=== PATIENT | female | born 1940 | race Caucasian/White ===

== ENCOUNTER 2018-01-20 10:01 | Inpatient (IN) | payer MEDICARE ==
[2018-01-20] MEDS ORDERED: SODIUM CHLORIDE 0.9% 500 ML IV STA (10:15)
[2018-01-20] MEDS ORDERED: IPRATROPIUM-ALBUTEROL 3 ML NEB INHALATION STA (10:15)
--- NOTE | 2018-01-20 10:29 | ED ---
General Adult HPI - General Stated complaint: Weakness Time Seen by Provider: 01/20/18 10:04 Source: patient, RN notes reviewed, old records reviewed Mode of arrival: ambulatory Limitations: no limitations - History of Present Illness Initial comments: 77-year-old female presents with generalized weakness. Patient was urged by family members to present. EMS brought the patient in with significant amount of effort. According to EMS she has had a mild cough which is productive for some time. Patient does admit to this symptom. She is unwilling to contribute significant information of the history. She will deny chest pain. Deny fever or chills. Denies abdominal pain. She has had some chronic right lower extremity swelling with multiple open sores. She does admit to daily tobacco use. - Related Data Home Medications Medication Instructions Recorded Confirmed Lisinopril [Zestril] 10 mg PO DAILY 01/20/18 01/20/18 Triamterene-Hctz 37.5-25Mg 1 cap PO DAILY 01/20/18 01/20/18 [Dyazide 37.5-25 Capsule] Allergies Allergy/AdvReac Type Severity Reaction Status Date / Time No Known Allergies Allergy Unverified 01/20/18 10:34 Review of Systems ROS Statement: Those systems with pertinent positive or pertinent negative responses have been documented in the HPI. ROS Other: All systems not noted in ROS Statement are negative. Past Medical History Past Medical History: COPD History of Any Multi-Drug Resistant Organisms: None Reported Past Surgical History: No Surgical Hx Reported Past Psychological History: No Psychological Hx Reported Smoking Status: Current every day smoker Past Alcohol Use History: None Reported Past Drug Use History: None Reported General Exam Limitations: no limitations General appearance: alert Head exam: Present: atraumatic. Absent: normocephalic Eye exam: Present: normal appearance, PERRL ENT exam: Present: mucous membranes dry Neck exam: Present: normal inspection. Absent: tenderness, meningismus Respiratory exam: Present: respiratory distress (Mild tachypnea), rhonchi ( Bilateral rhonchi, may be transmitted upper airway), decreased breath sounds Cardiovascular Exam: Present: normal rhythm, tachycardia GI/Abdominal exam: Present: soft. Absent: distended, tenderness, guarding Extremities exam: Present: other (Left lower extremity, multiple sores with minimal surrounding erythema, right lower extremity is edematous, erythematous to the knee, there is multiple sores with purulent drainage. No palpable pulse secondary to edema, there is Doppler signal.) Neurological exam: Present: alert, oriented X3 Psychiatric exam: Present: normal affect, normal mood Skin exam: Present: warm, dry. Absent: cyanosis, diaphoretic Course Vital Signs 01/20/18 01/20/18 01/20/18 10:20 10:52 12:31 Temperature 96.9 F L Pulse Rate 108 H 101 H Pulse Rate [ 106 H Right Product Development Director] Respiratory 22 24 18 Rate Blood Pressure 119/54 115/48 O2 Sat by Pulse 91 L 92 L Oximetry 01/20/18 01/20/18 01/20/18 12:32 12:40 13:28 Temperature Pulse Rate 106 H 107 H 118 H Pulse Rate [ Right Product Development Director] Respiratory 18 Rate Blood Pressure 122/61 O2 Sat by Pulse 91 L Oximetry EKG Findings - EKG Comments: EKG Findings:: EKG: Sinus tachycardia, very poor baseline secondary tremor Rate of 111, RI interval 140 QRS is narrow, QRS duration 82, there is no visualized ST segment elevation although baseline is very poor. Patient is chest pain- free at the time of this EKG Medical Decision Making - Medical Decision Making 76 yo female presenting for evaluation of weakness. On initial evaluation patient appears to be in moderate dyspnea, she does report some URI symptoms including productive cough. Lungs are diminished with wheezing. She is a long- time smoker. She also has erythematous right lower extremity with multiple open ulcerations with purulent drainage. Ultrasound is obtained of this leg is negative for DVT, there is a 2.8 cm lymph node likely reactive secondary to infection. In addition to this infectious source patient does have chest x-ray revealing right middle lobe infiltrate consistent with a respiratory complaint. And she has a urinalysis which is suggestive of urinary tract infection with 77 red cells and greater than 182 white cells. Blood culture and urine culture are pending. Patient has significant laboratory abnormalities including leukocytosis with white blood cell count 35.6, hemoglobin stable, potassium is elevated 6.2 in the setting of renal failure with a creatinine of 2.27, no baseline for comparison. Patient does have a lactic acidosis of 2.2. She is given IV hydration, started on antibiotics covering both urinary tract infection , community acquired pneumonia, and cellulitis of the right lower extremity. Case discussed with the admitting physician, patient will also receive evaluation by infectious disease. - Lab Data Result diagrams: 01/20/18 10:46 01/20/18 10:46 Lab Results 01/20/18 01/20/18 01/20/18 Range/Units 10:46 10:46 10:46 WBC 35.6 H (3.8-10.6) k/uL RBC 4.19 (3.80-5.40) m/uL Hgb 11.0 L (11.4-16.0) gm/dL Hct 35.1 (34.0-46.0) % MCV 83.7 (80.0-100.0) fL MCH 26.3 (25.0-35.0) pg MCHC 31.4 (31.0-37.0) g/dL RDW 14.6 (11.5-15.5) % Plt Count 567 H (150-450) k/uL Neutrophils % (Manual) 75 % Band Neutrophils % 8 % Lymphocytes % (Manual) 12 % Monocytes % (Manual) 5 % Neutrophils # (Manual) 29.50 H (1.3-7.7) k/uL Lymphocytes # (Manual) 4.27 (1.0-4.8) k/uL Monocytes # (Manual) 1.78 H (0-1.0) k/uL Nucleated RBCs 0 (0-0) /100 WBC Manual Slide Review Performed Toxic Vacuolation Present RBC Morphology Normal PT (9.0-12.0) sec INR (<1.2) APTT (22.0-30.0) sec Sodium 135 L (137-145) mmol/L Potassium 6.2 H* (3.5-5.1) mmol/L Chloride 99 (98-107) mmol/L Carbon Dioxide 20 L (22-30) mmol/L Anion Gap 16 mmol/L BUN 93 H (7-17) mg/dL Creatinine 2.27 H (0.52-1.04) mg/dL Est GFR (CKD-EPI)AfAm 23 (>60 ml/min/1.73 sqM) Est GFR (CKD-EPI)NonAf 20 (>60 ml/min/1.73 sqM) Glucose 75 (74-99) mg/dL Plasma Lactic Acid Garrett (0.7-2.0) mmol/L Calcium 9.1 (8.4-10.2) mg/dL Magnesium 2.9 H (1.6-2.3) mg/dL Total Bilirubin 0.7 (0.2-1.3) mg/dL AST 71 H (14-36) U/L ALT 31 (9-52) U/L Alkaline Phosphatase 169 H (38-126) U/L Total Creatine Kinase 657 H (30-135) U/L CK-MB (CK-2) 11.2 H (0.0-2.4) ng/mL CK-MB (CK-2) Rel Index 1.7 Troponin I 0.022 (0.000-0.034) ng/mL Total Protein 7.1 (6.3-8.2) g/dL Albumin 3.1 L (3.5-5.0) g/dL Urine Color Urine Appearance (Clear) Urine pH (5.0-8.0) Ur Specific Goodell (1.001-1.035) Urine Protein (Negative) Urine Glucose (UA) (Negative) Urine Ketones (Negative) Urine Blood (Negative) Urine Nitrite (Negative) Urine Bilirubin (Negative) Urine Urobilinogen (<2.0) mg/dL Ur Leukocyte Esterase (Negative) Urine RBC (0-5) /hpf Urine WBC (0-5) /hpf Urine WBC Clumps (None) /hpf Urine Bacteria (None) /hpf Hyaline Casts (0-2) /lpf 01/20/18 01/20/18 01/20/18 Range/Units 10:46 10:46 12:15 WBC (3.8-10.6) k/uL RBC (3.80-5.40) m/uL Hgb (11.4-16.0) gm/dL Hct (34.0-46.0) % MCV (80.0-100.0) fL MCH (25.0-35.0) pg MCHC (31.0-37.0) g/dL RDW (11.5-15.5) % Plt Count (150-450) k/uL Neutrophils % (Manual) % Band Neutrophils % % Lymphocytes % (Manual) % Monocytes % (Manual) % Neutrophils # (Manual) (1.3-7.7) k/uL Lymphocytes # (Manual) (1.0-4.8) k/uL Monocytes # (Manual) (0-1.0) k/uL Nucleated RBCs (0-0) /100 WBC Manual Slide Review Toxic Vacuolation RBC Morphology PT 11.0 (9.0-12.0) sec INR 1.1 (<1.2) APTT 26.4 (22.0-30.0) sec Sodium (137-145) mmol/L Potassium (3.5-5.1) mmol/L Chloride (98-107) mmol/L Carbon Dioxide (22-30) mmol/L Anion Gap mmol/L BUN (7-17) mg/dL Creatinine (0.52-1.04) mg/dL Est GFR (CKD-EPI)AfAm (>60 ml/min/1.73 sqM) Est GFR (CKD-EPI)NonAf (>60 ml/min/1.73 sqM) Glucose (74-99) mg/dL Plasma Lactic Acid Garrett 2.2 H* (0.7-2.0) mmol/L Calcium (8.4-10.2) mg/dL Magnesium (1.6-2.3) mg/dL Total Bilirubin (0.2-1.3) mg/dL AST (14-36) U/L ALT (9-52) U/L Alkaline Phosphatase (38-126) U/L Total Creatine Kinase (30-135) U/L CK-MB (CK-2) (0.0-2.4) ng/mL CK-MB (CK-2) Rel Index Troponin I (0.000-0.034) ng/mL Total Protein (6.3-8.2) g/dL Albumin (3.5-5.0) g/dL Urine Color Red Urine Appearance Turbid H (Clear) Urine pH 5.5 (5.0-8.0) Ur Specific Goodell 1.018 (1.001-1.035) Urine Protein 2+ H (Negative) Urine Glucose (UA) Negative (Negative) Urine Ketones Negative (Negative) Urine Blood Large H (Negative) Urine Nitrite Negative (Negative) Urine Bilirubin Negative (Negative) Urine Urobilinogen 2.0 (<2.0) mg/dL Ur Leukocyte Esterase Large H (Negative) Urine RBC 77 H (0-5) /hpf Urine WBC >182 H (0-5) /hpf Urine WBC Clumps Many H (None) /hpf Urine Bacteria Many H (None) /hpf Hyaline Casts 56 H (0-2) /lpf Critical Care Time Critical Care Time: Yes Total Critical Care Time: 35 Disposition Clinical Impression: Hyperkalemia, Sepsis, UTI (urinary tract infection), Community acquired pneumonia Disposition: ADMITTED IP TO THIS HOSP Condition: Stable Is patient prescribed a controlled substance at d/c from ED?: No Referrals: Eleuterio Fontana MD [Primary Care Provider] - 1-2 days Decision to Admit Reason: Admit from EC Decision Date: 01/20/18 Decision Time: 13:45
[2018-01-20 11:08] LABS: HCT 35.1 % (34.0-46.0); MCH 26.3 pg (25.0-35.0); MCHC 31.4 g/dL (31.0-37.0); MCV 83.7 fL (80.0-100.0); Mean Platelet Volume 6.1; Platelet Count 567 k/uL (150-450); RBC 4.19 m/uL (3.80-5.40); RDW 14.6 % (11.5-15.5); WBC 35.6 k/uL (3.8-10.6)
[2018-01-20 11:22] LABS: INR 1.1 (<1.2); Partial Thromboplastin Time 26.4 sec (22.0-30.0)
[2018-01-20 11:27] LABS: Albumin 3.1 g/dL (3.5-5.0); Calcium 9.1 mg/dL (8.4-10.2); Magnesium 2.9 mg/dL (1.6-2.3); Total Bilirubin 0.7 mg/dL (0.2-1.3); Total Protein 7.1 g/dL (6.3-8.2)
[2018-01-20 11:39] LABS: Potassium 6.2 mmol/L (3.5-5.1)
[2018-01-20 11:48] LABS: Band Neutrophils % 8 %; Lymphocytes # (M) 4.27 k/uL (1.0-4.8); Monocytes # (M) 1.78 k/uL (0-1.0); Neutrophils % (M) 75 %; Nucleated Red Blood Cells 0 /100 WBC (0-0); Total Cells Counted 100
[2018-01-20] MEDS ORDERED: SODIUM CHLORIDE 0.9% 500 ML IV ONE (11:49)
[2018-01-20] MEDS ORDERED: SODIUM POLYSTYRENE SULFONATE 15 GM/60 ML BOTTLE PO ONE (11:49)
[2018-01-20] MEDS ORDERED: VANCOMYCIN IV PER PHARMACY 1 EACH MISC MISCELLANE PRN (11:49)
[2018-01-20 11:50] LABS: Creatine Kinase MB 11.2 ng/mL (0.0-2.4); Troponin I 0.022 ng/mL (0.000-0.034)
[2018-01-20] MEDS ORDERED: CALCIUM GLUCONATE 1,000 MG in SODIUM CHLORIDE 0.9% 100 ML IVPB ONE (11:50)
[2018-01-20 11:53] LABS: Toxic Vacuolation Present
[2018-01-20] MEDS ORDERED: VANCOMYCIN 1,000 MG in SODIUM CHLORIDE 0.9% 250 ML IVPB STA (11:54)
--- NOTE | 2018-01-20 12:38 | XR ---
EXAMINATION TYPE: XR chest 2V DATE OF EXAM: 01/20/2018 COMPARISON: NONE HISTORY: Shortness of breath TECHNIQUE: Frontal and lateral views of the chest are obtained. FINDINGS: Scattered senescent parenchymal changes noted. Hyperinflation compatible with COPD. Right middle lobe infiltrate or atelectasis. Underlying fibrosis noted. Fixed hiatal hernia. Heart size is stable. Mediastinal structures are stable and grossly unremarkable. No evidence for hilar prominence. Degenerative changes dorsal spine. IMPRESSION: 1. Right middle lobe infiltrate or atelectasis. Underlying fibrosis noted.
[2018-01-20 12:42] LABS: Appearance,Urine Turbid (Clear); Bacteria,Urine Many /hpf; Bilirubin,Urine Negative (Negative); Blood,Urine Large (Negative); Color,Urine Red; Glucose,Urine (UA) Negative (Negative); Hyaline Casts,Urine 56 /lpf (0-2); Ketones,Urine Negative (Negative); Leukocyte Esterase,Urine Large (Negative); Nitrite,Urine Negative (Negative); PH, Urine 5.5 (5.0-8.0); Protein,Urine 2+ (Negative); RBC,Urine 77 /hpf (0-5); Specific Gravity,Urine 1.018 (1.001-1.035); WBC,Urine >182 /hpf (0-5)
--- NOTE | 2018-01-20 13:53 | US ---
EXAMINATION TYPE: US venous doppler duplex LE RT DATE OF EXAM: 01/20/2018 1:37 PM COMPARISON: NONE CLINICAL HISTORY: Pain. Right leg pain and swelling SIDE PERFORMED: Right TECHNIQUE: The lower extremity deep venous system is examined utilizing real time linear array sonog jalen with graded compression, doppler sonography and color-flow sonography. VESSELS IMAGED: External Iliac Vein (EIV) Common Femoral Vein Deep Femoral Vein Greater Saphenous Vein * Femoral Vein Popliteal Vein Small Saphenous Vein * Proximal Calf Veins (* superficial vessels) Right Leg: Appears negative for DVT 2.8cm lymph node seen in right groin IMPRESSION: No evidence for DVT at this time.
[2018-01-20] MEDS ORDERED: AZITHROMYCIN 500 MG in SODIUM CHLORIDE 0.9% 250 ML IVPB STA (14:04)
[2018-01-20] MEDS ORDERED: NALOXONE 0.4 MG/ML 1 ML VIAL IV PRN (14:14)
[2018-01-20] MEDS ORDERED: ACETAMINOPHEN TAB 325 MG TAB PO PRN (14:14)
[2018-01-20] MEDS: SODIUM CHLORIDE 0.9% 1,000 ML IV SCH (14:35)
[2018-01-20] MEDS: LISINOPRIL 10 MG TAB PO SCH (17:58)
[2018-01-20] MEDS ORDERED: traZODone HCL 50 MG TAB PO PRN (18:04)
[2018-01-20] MEDS: METOPROLOL TARTRATE 50 MG TAB PO SCH (18:10)
[2018-01-20 22:09] LABS: Glucose,Whole Blood 77 mg/dL (75-99)
[2018-01-20 22:27] LABS: Albumin 2.3 g/dL (3.5-5.0); Calcium 8.3 mg/dL (8.4-10.2); Potassium 4.1 mmol/L (3.5-5.1); Total Bilirubin 0.2 mg/dL (0.2-1.3); Total Protein 5.7 g/dL (6.3-8.2)
[2018-01-20 23:03] LABS: INR 1.2 (<1.2); Partial Thromboplastin Time 25.9 sec (22.0-30.0); Prothrombin Time 11.9 sec (9.0-12.0)
[2018-01-20 23:03] LABS: Glucose,Whole Blood 64 mg/dL (75-99)
[2018-01-20 23:12] LABS: ABG Base Excess -7.7 mmol/L; ABG HCO3 18 mmol/L (21-25); ABG Oxygen Saturation 96.4 % (94-97); ABG PCO2 32 mmHg (35-45); ABG PH 7.36 (7.35-7.45); ABG PO2 108 mmHg (83-108); ABG TCO2 19 mmol/L (19-24)
[2018-01-20 23:22] LABS: Glucose,Whole Blood 70 mg/dL (75-99)
[2018-01-20] MEDS: NOREPINEPHRINE 4 MG in SODIUM CHLORIDE 0.9% 250 ML IV SCH (23:47)
[2018-01-20 23:54] LABS: Calcium 7.9 mg/dL (8.4-10.2); Magnesium 2.6 mg/dL (1.6-2.3); Phosphorus 6.9 mg/dL (2.5-4.5); Potassium 4.4 mmol/L (3.5-5.1)
[2018-01-21] LABS: Basophils # (A) 0.2 k/uL (0-0.2); Basophils % (A) 1 %; Eosinophils # (A) 0.2 k/uL (0-0.7); Eosinophils % (A) 1 %; HCT 30.1 % (34.0-46.0); Hypochromasia Slight; Lymphocytes # (A) 2.2 k/uL (1.0-4.8); Lymphocytes % (A) 8 %; MCH 26.5 pg (25.0-35.0); MCHC 30.5 g/dL (31.0-37.0); MCV 86.9 fL (80.0-100.0); Mean Platelet Volume 6.2; Monocytes # (A) 0.4 k/uL (0-1.0); Monocytes % (A) 2 %; Neutrophils # (A) 23.1 k/uL (1.3-7.7); Neutrophils % (A) 88 %; Platelet Count 435 k/uL (150-450); RBC 3.46 m/uL (3.80-5.40); RDW 14.8 % (11.5-15.5); WBC 26.3 k/uL (3.8-10.6)
[2018-01-21 00:08] LABS: HGB 9.2 gm/dL (11.4-16.0)
[2018-01-21] MEDS ORDERED: HEPARIN SODIUM,PORCINE 5,000 UNIT/ML 1 ML VIAL IV ONE (01:55)
[2018-01-21] MEDS ORDERED: HEPARIN SODIUM,PORCINE 5,000 UNIT/ML 1 ML VIAL IV PRN (01:55)
[2018-01-21] MEDS ORDERED: HEPARIN SOD,PORK IN 0.45% NACL 25,000 UNIT in 0.45% NACL 1 500ML.BAG IV SCH (02:00)
[2018-01-21] MEDS: METOPROLOL TARTRATE 50 MG TAB PO SCH ×2 (02:22→08:27)
[2018-01-21 03:14] LABS: Glucose,Whole Blood 68 mg/dL (75-99)
[2018-01-21 05:35] LABS: Albumin 2.3 g/dL (3.5-5.0); Calcium 7.7 mg/dL (8.4-10.2); Magnesium 2.5 mg/dL (1.6-2.3); Potassium 3.7 mmol/L (3.5-5.1); Total Bilirubin 0.3 mg/dL (0.2-1.3); Total Protein 5.6 g/dL (6.3-8.2)
[2018-01-21 05:41] LABS: HCT 31.5 % (34.0-46.0); HGB 9.9 gm/dL (11.4-16.0); Hypochromasia Slight; MCH 26.9 pg (25.0-35.0); MCHC 31.3 g/dL (31.0-37.0); Mean Platelet Volume 6.4; Platelet Count 494 k/uL (150-450); RBC 3.67 m/uL (3.80-5.40); RDW 14.8 % (11.5-15.5)
[2018-01-21] MEDS ORDERED: ACETAMINOPHEN IV (For NPO) 1,000 MG in EMPTY BAG 1 BAG IVPB PRN (05:52)
[2018-01-21] MEDS: SODIUM CHLORIDE 0.9% 1,000 ML IV SCH (05:58)
[2018-01-21] MEDS ORDERED: ACETAMINOPHEN TAB 325 MG TAB PO PRN (06:02)
[2018-01-21] MEDS ORDERED: Potassium Replacement Protocol 1 EACH MISC MISCELLANE PRN (06:22)
[2018-01-21 06:24] LABS: Band Neutrophils % 7 %; Lymphocytes # (M) 2.61 k/uL (1.0-4.8); Monocytes # (M) 1.16 k/uL (0-1.0); Neutrophils % (M) 81 %; Nucleated Red Blood Cells 0 /100 WBC (0-0); Total Cells Counted 200
[2018-01-21] MEDS ORDERED: DILTIAZEM 50 MG in SODIUM CHLORIDE 0.9% 40 ML IV STA (06:44)
[2018-01-21] MEDS ORDERED: DILTIAZEM DRIP BOLUS FROM BAG 1 MG SOLN IV STA (06:44)
--- NOTE | 2018-01-21 06:58 | XR ---
EXAMINATION TYPE: XR chest 1V portable DATE OF EXAM: 01/21/2018 HISTORY: Rule out pneumonia. REFERENCE: Previous study dated 01/20/2018. FINDINGS: There is a worsening right basilar infiltrate. There is an associated right-sided effusion. Heart size is obscured. There is a background of interstitial fibrosis. IMPRESSION: WORSENING RIGHT BASILAR PNEUMONIA.
[2018-01-21] MEDS: LISINOPRIL 10 MG TAB PO SCH (08:27)
[2018-01-21 08:30] VITALS: TEMP 99.3
[2018-01-21 08:36] LABS: INR 1.2 (<1.2); Partial Thromboplastin Time 28.9 sec (22.0-30.0); Prothrombin Time 11.4 sec (9.0-12.0)
[2018-01-21 08:54] LABS: Glucose,Whole Blood 66 mg/dL (75-99)
[2018-01-21] MEDS ORDERED: DEXTROSE 50%-WATER 50 ML SYRINGE IVP ONE (08:54)
[2018-01-21 08:55] VITALS: BMI 15.0
[2018-01-21] MEDS ORDERED: AZITHROMYCIN 500 MG in SODIUM CHLORIDE 0.9% 250 ML IVPB SCH ×4 (09:00)
[2018-01-21] MEDS ORDERED: DEXTROSE 50%-WATER 50 ML SYRINGE IVP STA (09:02)
[2018-01-21] MEDS: NOREPINEPHRINE 4 MG in SODIUM CHLORIDE 0.9% 250 ML IV SCH (09:27)
[2018-01-21] MEDS: POTASSIUM CHLORIDE 10 MEQ in WATER FOR INJECTION 1 100ML.BAG IVPB SCH ×2 (09:28→10:39)
[2018-01-21 09:41] LABS: Glucose,Whole Blood 135 mg/dL (75-99)
[2018-01-21] MEDS ORDERED: VANCOMYCIN 750 MG in SODIUM CHLORIDE 0.9% 250 ML IVPB ONE (10:00)
[2018-01-21 10:23] VITALS: BP 91/44; PULSE 111; RESP 24
--- NOTE | 2018-01-21 10:54 | P.CNPUL ---
History of Present Illness Consult date: 01/21/18 Reason for consult: dyspnea, hypoxemia, pneumonia, abnormal CXR/CT, other Chief complaint: Urosepsis, cellulitis, pneumonia, impending respiratory failure. History of present illness: Pulmonary consult dated 01/21/2018 77-year-old female who presented to the emergency department on January 20 with generalized weakness. She apparently was brought in by EMS. She apparently was complaining of a productive cough. She was not able to give much history. She apparently denied any chest pain fever or chills. Denied any abdominal discomfort. She does have some chronic right lower extremity swelling and edema. She was checked for DVT that was negative. Chest x-ray reported to show either right middle lobe/right lower lobe pneumonia. She apparently developed worsening respiratory distress yesterday on the floor and was a rapid response team. My ICU nurse, Dorene, went to go see her and called me. The patient was in significant distress and was brought to the treatment room in the ICU. Currently, the patient's on BiPAP at 10 and 5 and 50% oxygen. The patient's on heparin via weightbase protocol norepinephrine at 10 mics per minute Cardizem drip at 5 mg an hour and a saline IV at 20 mL an hour. Chest x-ray showed evidence of heart failure and possible pneumonia in the right middle lobe/right lower lobe. The patient is apparently DO NOT INTUBATE. Her son Ke is here for waiting for her in the waiting room. Quite honestly, the patient looks extremely. I don't believe that she is to make it through this critical illness. Her breathing pattern is rather irregular. She has significant lower extremity edema and ulcerations of the feet and legs. Chest x-ray, labs and medications are reviewed. Not much is known about this patient though she apparently has a history of COPD and hypertension. Review of Systems ROS unobtainable: due to mental status Past Medical History Past Medical History: COPD, Hypertension, Skin Disorder Additional Past Medical History / Comment(s): scoliosis, back pain, skin condition pt can't rememebr what it's called History of Any Multi-Drug Resistant Organisms: None Reported Past Surgical History: No Surgical Hx Reported Additional Past Surgical History / Comment(s): 1988 small benign growth removed from breast Past Anesthesia/Blood Transfusion Reactions: No Reported Reaction Smoking Status: Current every day smoker - Past Family History Father Family Medical History: CVA/TIA Additional Family Medical History / Comment(s): in his 70's Mother Family Medical History: Myocardial Infarction ([place]) Additional Family Medical History / Comment(s): in her mid 80's Medications and Allergies Home Medications Medication Instructions Recorded Confirmed Type Lisinopril [Zestril] 10 mg PO DAILY 01/20/18 01/20/18 History Triamterene-Hctz 37.5-25Mg 1 cap PO DAILY 01/20/18 01/20/18 History [Dyazide 37.5-25 Capsule] Allergies Allergy/AdvReac Type Severity Reaction Status Date / Time No Known Allergies Allergy Unverified 01/20/18 10:34 Physical Exam Osteopathic Statement: *. No significant issues noted on an osteopathic structural exam other than those noted in the History and Physical/Consult. Vitals: Vital Signs Temp Pulse Pulse Pulse Resp BP BP 01/21/18 10:00 111 H 24 91/44 01/21/18 09:30 130 H 29 H 78/38 01/21/18 09:00 128 H 26 H 104/53 01/21/18 08:30 136 H 34 H 83/52 01/21/18 08:00 99.3 F 120 H 30 H 116/54 01/21/18 07:30 141 H 34 H 129/83 01/21/18 07:00 136 H 28 H 135/66 01/21/18 06:45 148 H 35 H 137/64 01/21/18 06:30 154 H 19 134/61 01/21/18 06:15 132 H 31 H 126/50 01/21/18 06:00 144 H 32 H 119/59 01/21/18 05:45 143 H 26 H 77/54 01/21/18 05:42 01/21/18 05:30 149 H 29 H 114/65 01/21/18 05:15 132 H 34 H 110/56 01/21/18 05:00 124 H 30 H 136/56 01/21/18 04:45 133 H 24 115/67 01/21/18 04:30 119 H 20 114/56 01/21/18 04:15 121 H 26 H 122/54 01/21/18 04:00 99.1 F 134 H 26 H 122/61 01/21/18 03:45 120 H 29 H 110/59 01/21/18 03:30 122 H 28 H 109/53 01/21/18 03:15 115 H 26 H 107/43 01/21/18 03:00 130 H 27 H 124/63 01/21/18 02:45 114 H 29 H 119/61 01/21/18 02:30 128 H 28 H 95/49 01/21/18 02:15 130 H 28 H 109/46 01/21/18 02:00 128 H 32 H 113/53 01/21/18 01:45 110 H 23 102/52 01/21/18 01:30 128 H 33 H 100/55 01/21/18 01:15 116 H 26 H 01/21/18 01:00 127 H 28 H 97/64 01/21/18 00:45 116 H 28 H 127/73 01/21/18 00:30 112 H 30 H 111/50 01/21/18 00:15 97.9 F 136 H 24 105/62 01/21/18 00:10 106 H 22 95/60 01/21/18 00:00 122 H 23 104/77 01/20/18 23:50 121 H 21 109/55 01/20/18 23:40 123 H 28 H 92/48 01/20/18 23:30 122 H 51 H 79/46 01/20/18 23:20 126 H 36 H 81/53 01/20/18 23:10 111 H 32 H 92/46 01/20/18 23:00 97.9 F 111 H 26 H 92/46 18 22:30 01/20/18 20:00 98.1 F 125 H 22 110/59 01/20/18 16:00 97.1 F L 130 H 22 148/61 01/20/18 15:08 96.8 F L 118 H 18 122/61 01/20/18 14:51 96.8 F L 118 H 18 122/61 01/20/18 13:28 118 H 18 122/61 01/20/18 12:40 107 H 01/20/18 12:32 106 H 01/20/18 12:31 101 H 18 115/48 01/20/18 10:52 106 H 24 Pulse Ox 01/21/18 10:00 97 01/21/18 09:30 96 01/21/18 09:00 95 01/21/18 08:30 95 01/21/18 08:00 97 01/21/18 07:30 96 01/21/18 07:00 97 01/21/18 06:45 97 01/21/18 06:30 97 01/21/18 06:15 97 01/21/18 06:00 92 L 01/21/18 05:45 92 L 01/21/18 05:42 96 01/21/18 05:30 97 01/21/18 05:15 97 01/21/18 05:00 91 L 01/21/18 04:45 97 01/21/18 04:30 97 01/21/18 04:15 97 01/21/18 04:00 98 01/21/18 03:45 93 L 01/21/18 03:30 96 01/21/18 03:15 97 01/21/18 03:00 97 01/21/18 02:45 97 01/21/18 02:30 97 01/21/18 02:15 97 01/21/18 02:00 96 01/21/18 01:45 97 01/21/18 01:30 97 01/21/18 01:15 97 01/21/18 01:00 96 01/21/18 00:45 95 01/21/18 00:30 92 L 01/21/18 00:15 91 L 01/21/18 00:10 94 L 01/21/18 00:00 94 L 01/20/18 23:50 92 L 01/20/18 23:40 93 L 01/20/18 23:30 95 01/20/18 23:20 93 L 01/20/18 23:10 93 L 01/20/18 23:00 94 L 01/20/18 22:30 96 01/20/18 20:00 94 L 01/20/18 16:00 100 01/20/18 15:08 91 L 01/20/18 14:51 91 L 01/20/18 13:28 91 L 01/20/18 12:40 01/20/18 12:32 01/20/18 12:31 92 L 01/20/18 10:52 Intake and Output 01/20/18 01/21/18 01/21/18 22:59 06:59 14:59 Intake Total 1500 775.000 377.122 Output Total 360 290 Balance 1500 415.000 87.122 Intake: IV 525 135 Sodium Chloride 0.9% 1, 525 135 000 ml @ 75 mls/hr IV . [id number] ARE[facility] Rx#:[id number] Amount of Fluid Infused ( 1100 ml) Intake, IV Titration 200 250.000 242.122 Amount Diltiazem 50 mg In Sodium 17.5 Chloride 0.9% 40 ml @ 7. 5 MG/HR 7.5 mls/hr IV . Q6H40M STA Rx#:[id number] Heparin Sod,Pork in 0.45% 74.622 NaCl 25,000 unit In 0.45 % NaCl 1 500ml.bag @ 12 UNITS/KG/HR 8.38 mls/hr IV .Q24H ARELY Rx#: [id number] Norepinephrine 4 mg In 250.000 Sodium Chloride 0.9% 250 ml @ Titrate IV .Q0M [facility] Rx#:[id number] Potassium Chloride 10 meq 100 In Water For Injection 1 100ml.bag @ 100 mls/hr IVPB Q1H [facility] Rx#: [id number] Sodium Chloride 0.9% 1, 75 000 ml @ 75 mls/hr IV . [id number] [facility] Rx#:[id number] Vancomycin 1,000 mg In 125 Sodium Chloride 0.9% 250 ml @ 125 mls/hr IVPB ONCE STA Rx#:[id number] cefTRIAXone 1,000 mg In 50 Sodium Chloride 0.9% 50 ml @ 100 mls/hr IVPB Q24HR ARE[facility] Rx#:[id number] Oral 200 Output: Urine 360 290 Other: Voiding Method Diaper Indwelling Catheter Weight 34.927 kg Tachypnea and dyspneic, in respiratory distress, BiPAP mask in place. The patient's poorly responsive and not able to give any additional history. HEENT examination is grossly unremarkable. Mucous membranes dry. BiPAP mask in place. Neck supple. Full range of motion. No adenopathy thyromegaly or neck vein distention. Cardiovascular examination reveals irregular rhythm and rate. S1-S2 normal. No S3 or S4. No discernible murmur noted. Heart sounds are distant and heart rate is 122 bpm Lungs reveal coarse bilateral rhonchi. Bibasilar crackles. Breath sounds equal bilaterally but diminished throughout. Abdomen soft bowel sounds are not heard. No masses or tenderness. Extremities are intact. Significant swelling particularly in the right lower extremity. Ulcerated lesions noted on both feet and legs.. Skin is paper thin. Neurologic examination could not be assessed. Results - Laboratory Findings CBC and BMP: 01/21/18 04:45 01/21/18 04:45 ABG ABG pH 7.36 (7.35-7.45) 01/20/18 23:07 ABG pCO2 32 mmHg (35-45) L 01/20/18 23:07 ABG pO2 108 mmHg (83-108) 01/20/18 23:07 ABG O2 Saturation 96.4 % (94-97) 01/20/18 23:07 PT/INR, D-dimer PT 11.4 sec (9.0-12.0) 01/21/18 07:54 INR 1.2 (<1.2) H 01/21/18 07:54 Abnormal lab findings: Abnormal Labs 01/20/18 01/20/18 01/20/18 10:46 10:46 10:46 WBC 35.6 H RBC Hgb 11.0 L Hct MCHC Plt Count 567 H Neutrophils # Neutrophils # (Manual) 29.50 H Monocytes # (Manual) 1.78 H INR ABG pCO2 ABG HCO3 Sodium 135 L Potassium 6.2 H* Chloride Carbon Dioxide 20 L BUN 93 H Creatinine 2.27 H Glucose POC Glucose (mg/dL) Plasma Lactic Acid Garrett Calcium Phosphorus Magnesium 2.9 H AST 71 H Alkaline Phosphatase 169 H Total Creatine Kinase 657 H CK-MB (CK-2) 11.2 H Total Protein Albumin 3.1 L Urine Appearance Urine Protein Urine Blood Ur Leukocyte Esterase Urine RBC Urine WBC Urine WBC Clumps Urine Bacteria Hyaline Casts 01/20/18 01/20/18 01/20/18 10:46 12:15 19:59 WBC RBC Hgb Hct MCHC Plt Count Neutrophils # Neutrophils # (Manual) Monocytes # (Manual) INR ABG pCO2 ABG HCO3 Sodium 136 L Potassium Chloride Carbon Dioxide 18 L BUN 85 H Creatinine 1.86 H Glucose POC Glucose (mg/dL) Plasma Lactic Acid Garrett 2.2 H* Calcium 8.3 L Phosphorus Magnesium AST 69 H Alkaline Phosphatase 127 H Total Creatine Kinase CK-MB (CK-2) Total Protein 5.7 L Albumin 2.3 L Urine Appearance Turbid H Urine Protein 2+ H Urine Blood Large H Ur Leukocyte Esterase Large H Urine RBC 77 H Urine WBC >182 H Urine WBC Clumps Many H Urine Bacteria Many H Hyaline Casts 56 H 01/20/18 01/20/18 01/20/18 22:40 22:40 23:01 WBC RBC Hgb Hct MCHC Plt Count Neutrophils # Neutrophils # (Manual) Monocytes # (Manual) INR 1.2 H ABG pCO2 ABG HCO3 Sodium Potassium Chloride 108 H Carbon Dioxide 18 L BUN 85 H Creatinine 1.70 H Glucose 60 L POC Glucose (mg/dL) 64 L Plasma Lactic Acid Garrett Calcium 7.9 L Phosphorus 6.9 H Magnesium 2.6 H AST Alkaline Phosphatase Total Creatine Kinase CK-MB (CK-2) Total Protein Albumin Urine Appearance Urine Protein Urine Blood Ur Leukocyte Esterase Urine RBC Urine WBC Urine WBC Clumps Urine Bacteria Hyaline Casts 01/20/18 01/20/18 01/20/18 23:03 23:07 23:47 WBC 26.3 H RBC 3.46 L Hgb 9.2 L D Hct 30.1 L MCHC 30.5 L Plt Count Neutrophils # 23.1 H Neutrophils # (Manual) Monocytes # (Manual) INR ABG pCO2 32 L ABG HCO3 18 L Sodium Potassium Chloride Carbon Dioxide BUN Creatinine Glucose POC Glucose (mg/dL) 70 L Plasma Lactic Acid Garrett Calcium Phosphorus Magnesium AST Alkaline Phosphatase Total Creatine Kinase CK-MB (CK-2) Total Protein Albumin Urine Appearance Urine Protein Urine Blood Ur Leukocyte Esterase Urine RBC Urine WBC Urine WBC Clumps Urine Bacteria Hyaline Casts 01/21/18 01/21/18 01/21/18 03:13 04:45 04:45 WBC 29.0 H RBC 3.67 L Hgb 9.9 L Hct 31.5 L MCHC Plt Count 494 H Neutrophils # Neutrophils # (Manual) 25.50 H Monocytes # (Manual) 1.16 H INR ABG pCO2 ABG HCO3 Sodium Potassium Chloride 111 H Carbon Dioxide 18 L BUN 71 H Creatinine 1.43 H Glucose POC Glucose (mg/dL) 68 L Plasma Lactic Acid Garrett Calcium 7.7 L Phosphorus 7.0 H Magnesium 2.5 H AST 87 H Alkaline Phosphatase 172 H Total Creatine Kinase CK-MB (CK-2) Total Protein 5.6 L Albumin 2.3 L Urine Appearance Urine Protein Urine Blood Ur Leukocyte Esterase Urine RBC Urine WBC Urine WBC Clumps Urine Bacteria Hyaline Casts 01/21/18 01/21/18 01/21/18 07:54 08:52 09:20 WBC RBC Hgb Hct MCHC Plt Count Neutrophils # Neutrophils # (Manual) Monocytes # (Manual) INR 1.2 H ABG pCO2 ABG HCO3 Sodium Potassium Chloride Carbon Dioxide BUN Creatinine Glucose POC Glucose (mg/dL) 66 L 135 H Plasma Lactic Acid Garrett Calcium Phosphorus Magnesium AST Alkaline Phosphatase Total Creatine Kinase CK-MB (CK-2) Total Protein Albumin Urine Appearance Urine Protein Urine Blood Ur Leukocyte Esterase Urine RBC Urine WBC Urine WBC Clumps Urine Bacteria Hyaline Casts - Diagnostic Findings Chest x-ray: report reviewed, image reviewed U/S of Legs: report reviewed, image reviewed (Labs x-rays and medications are reviewed.) Assessment and Plan Assessment: Assessment Hypoxemic respiratory failure, likely secondary to heart failure and right middle lobe/right lower lobe pneumonia Impending hypoxemic respiratory failure. Hypotension, secondary to sepsis Atrial fibrillation with rapid ventricular response Pneumonia with sepsis and septic shock. History of hypertension Prerenal azotemia Anemia. Hyperchloremic non-anion gap metabolic acidosis History of COPD History of chronic tobacco abuse Plan: Plan dated 01/21/2018 Chest x-ray is consistent with fluid overload as well as right middle lobe/ right lower lobe pneumonia. White count is 29,000, hemoglobin 9.9 hematocrit 31.5 and platelet count is normal. Sodium 139 potassium 3.7 chloride is 111 CO2 18. Anion gap is 10. BUN/creatinine was 71 and 1.43. The patient is profoundly hypotensive requiring norepinephrine at 10 mcg/m. For her impending respiratory failure, she is on BiPAP at 50% with an IPAP of 10 and EPAP of 5. For atrial fibrillation she remains on IV heparin and Cardizem 5 mg an hour. Microbiology assess far negative. She is currently on vancomycin, azithromycin , and ceftriaxone. Prognosis is very poor. I'm going to talk to the son Ke about withdrawal of life support. Additional recommendations and suggestions are forthcoming. Time with Patient: Greater than 30
[2018-01-21] MEDS ORDERED: HYDROCORTISONE 1% CREAM 30 GM TUBE TOPICAL PRN (11:07)
[2018-01-21] MEDS ORDERED: DRY MOUTH SPRAY 44.3 SPRAY/44.3 ML SPRAY MUCOUS MEM PRN (11:07)
[2018-01-21] MEDS ORDERED: MORPHINE SULFATE 4 MG/ML SYRINGE IV PRN (11:07)
[2018-01-21] MEDS ORDERED: ARTIFICIAL TEARS-HYPROMELLOSE DROPS 15 ML BTL BOTH EYES PRN (11:07)
[2018-01-21] MEDS ORDERED: LORazepam 2 MG/ML INJ IV PRN (11:07)
[2018-01-21] MEDS ORDERED: ONDANSETRON 4 MG/2 ML VIAL IVP PRN (11:07)
[2018-01-21] MEDS ORDERED: MORPHINE SULFATE (100 MG/2 ML) 100 MG in SODIUM CHLORIDE 0.9% 100 ML IV SCH (11:15)
[2018-01-21] MEDS ORDERED: SCOPOLAMINE 1.5MG/72HR PATCH TRANSDERM SCH (11:15)
--- NOTE | 2018-01-21 11:34 | CONS ---
SHANE Chamberlain is a 77-year-old lady who was brought into the hospital with symptoms of generalized weakness, not feeling well, mild cough and was initially admitted to sixth floor where she developed atrial fibrillation with rapid ventricular rate and had to be transferred to ICU. She has hypotension, A. fib with RVR, was started on Levophed and intravenous Cardizem. Heart rates are better controlled this morning. She is also on IV heparin. Patient appears somewhat obtunded at the time of my evaluation, has an erythematous skin rash and is currently being evaluated for septicemia and urinary tract infection. On her initial presentation, she had a venous duplex of the lower extremities that is negative for DVT. Her lactic acidosis is elevated. Potassium was elevated. Creatinine was up at 2.27. She received IV fluids and subsequently started on Levophed. At the time of my evaluation, she is still in atrial fibrillation, but the heart rate is better controlled. ALLERGIES: There are no known drug allergies. PAST MEDICAL HISTORY: Significant for hypertension. MEDICATIONS: Include Zestril and Dyazide. FAMILY HISTORY, SOCIAL HISTORY, REVIEW OF SYSTEMS: I am not able to obtain from the patient. PHYSICAL EXAM: Patient's heart rate is 110 beats per minute, irregular. Blood pressure is 91/44, respiratory rate is 24. She is 97% on BiPAP. There is no jugular venous distention. Chest exam reveals diminished air entry at the bases. Heart exam reveals first and second heart sounds. Irregular rhythm. Systolic murmur at the left lower sternal border. Abdomen is soft. Exam of extremities revealed 1+ edema and diffuse erythematous rashes. Patient is currently on intravenous heparin, intravenous Cardizem. I am going to stop the Zestril and Lopressor. ASSESSMENT: 1. Persistent atrial fibrillation with rapid ventricular rate. 2. Hypotension with possible urinary tract infection and sepsis. 3. Renal failure. PLAN: I am going to continue the patient on intravenous Cardizem and heparin, obtain a 2D echo to document her LV function. If LV function is normal, we should increase the IV fluids. Prognosis is guarded. JENIFER / GION: [id number] /
--- NOTE | 2018-01-21 14:19 | PN ---
PROGRESS NOTE DATE OF SERVICE: 01/22/2108. CHIEF COMPLAINT: Septic shock. HISTORY OF PRESENT ILLNESS: This lady has deteriorated during the night. She is now comatose. PHYSICAL EXAM: Blood pressure is 104, on pressors. Respirations are 35 and pulse is 130 with atrial fibrillation. Chest demonstrates bilateral rhonchi and rales scattered throughout. The cardiac exam demonstrates tachycardia with atrial fibrillation. There are no abdominal masses and extremities are unchanged. IMPRESSION: 1. Septic shock. 2. 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 3. Chronic obstructive pulmonary disease. 4. Acute renal failure. 5. Leukocytosis. PLAN: Continue supportive care and follow with Infectious Disease and Intensive Medicine. MMODL / IJN: [id number] /
--- NOTE | 2018-01-21 14:19 | HP ---
HISTORY AND PHYSICAL \CHIEF COMPLAINT: Unresponsiveness and sepsis. HISTORY OF PRESENT ILLNESS: This is the first known admission for this 77-year-old white female who is normally very frail and is a heavy smoker. She was last seen in the office on January 04 and was evaluated for COPD and hypertension. At that time, she was complaining of a little bit of new edema in her hands, but there was nothing to be seen that was significant. Vital signs were normal. She has always been a fairly noncompliant individual refusing annual exams, measures, etc. 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 On the day that she was brought in, she was found on her kitchen floor and unable to get up. Her general focal neurologic deficits, but she was extremely weak. She is brought to the emergency room where it was determined that she was septic. She had a white count of 29,000 and hemoglobin 9.2. BUN is 93 and creatinine is 2.27. Calcium was low and lactic acid was 2.2. She had multiple ulcers or eschars on both legs. The right leg was more edematous than the left and distal pulses could not be palpated. She was delirious and no other history could be obtained. PAST MEDICAL HISTORY: Reveals that she is not allergic to anything. She has been on Dyazide once a day along with lisinopril 10 mg once a day and no other medications. She has been a long-time smoker and has continued to be so. Her exam at that time revealed blood pressure 122/60, pulse 72 and irregular, respirations 16, temperature 96.8. PHYSICAL EXAM: 104/53 on pressors. She had labored breathing on BiPAP. Head, ears, eyes, nose, mouth, and throat were unremarkable. Chest exam demonstrated bilateral rales and rhonchi. Cardiac exam demonstrated atrial fibrillation with rapid ventricular response. Abdomen is soft without any masses. Extremities demonstrated the right leg to be slightly more edematous than the left and somewhat mottled. There are open eschar areas on the right lower leg and foot as well as on the dorsum of the left foot and toes. The right leg was somewhat mottled but warm. The left was cooler. There was no definite evidence of impending gangrene, but was deemed peripheral circulation was definitely not adequate. IMPRESSION: 1. Septic shock. 2. Ischemia lower extremities with ischemic ulcers. 3. Possible cellulitis of the right leg. 4. Chronic obstructive pulmonary disease. 5. Acute renal failure. 6. Hypocalcemia. 7. Hyperkalemia. PLAN: 1. Bed rest. 2. IV fluids. 3. Infectious Disease consult. 4. Intensive Medicine consult. JENIFER / LYSSA: [id number] /
--- NOTE | 2018-01-25 14:12 | CDI ---
Date: 01/25/2018 From: Leonie REYES,RN,CCDS Admit Date: 01/20/2018 2:16:00 PM Patient Name: Cintia Steen Visit Number: [id number] Discharge Date:01/21/2018 ATTENTION: The Clinical Documentation Specialists (CDI) and [facility] Coding Staff appreciate your assistance in clarifying documentation. Please respond to the clarification below the line at the bottom and electronically sign. The CDI & [facility] Coding staff will review the response and follow-up if needed. Please note: Queries are made part of the Legal Health Record. If you have any questions, please contact the author of this message via ITS. Eleuterio Valderrama MD Patient has been described as very frail, noncompliant, with respiratory failure History/Risk Factors: COPD with heavy current smoker. Admitted with Sepsis and Pneumonia, UTI. Clinical Indicators: described as very frail, stage 2 pressure ulcer coccyx per RN, multiple ischemic ulcers LEs. Patients weight is 34.927Kg Patients height is 5 ft Calculated BMI is 15.0 Albumin upon present 3.1 Skin care/assessment: Very thin skin cold multiple ischemic ulcers on LEs. Edema cassi LEs Treatments: Pt transitioned to comfort care measures In order to capture the severity of condition associated with patient BMI of 15.0, a clinical diagnoses needs to be documented by the physician. Please clarify: Emaciated Cachexia Underweight Malnutrition Moderate Protein Calorie Malnutrition Severe protein calorie Malnutrition, (further specify severity and type) Other Unable to determine MTDD
--- NOTE | 2018-01-25 14:19 | CDI ---
Date: 01/25/2018 From: Leonie REYES,RN,CCDS Admit Date: 01/20/2018 2:16:00 PM Patient Name: Cintia Steen Visit Number: [id number] Discharge Date:01/21/2018 ATTENTION: The Clinical Documentation Specialists (CDI) and [facility] Coding Staff appreciate your assistance in clarifying documentation. Please respond to the clarification below the line at the bottom and electronically sign. The CDI & [facility] Coding staff will review the response and follow-up if needed. Please note: Queries are made part of the Legal Health Record. If you have any questions, please contact the author of this message via ITS. Eleuterio Valderrama MD Patient has been described as very frail, noncompliant, with respiratory failure History/Risk Factors: COPD with heavy current smoker. Admitted with Sepsis and Pneumonia, UTI. Pt found by family on floor. Clinical Indicators: described as very frail, stage 2 pressure ulcer coccyx per RN, multiple ischemic ulcers LEs per PNs and HP. Calculated BMI is 15.0 Other Clinical Indicators: Nurses note Stage 2 pressure ulcer coccyx POA Treatment: Turn Skin care, comfort care measure In your professional opinion, can you please render your opinion on the documentation by nurse of Stage 2 pressure ulcer on coccyx, POA Insert option Stage 2 pressure Ulcer POA Other, please specify Unable to determine MTDD
--- NOTE | 2018-01-26 18:01 | MISC ---
MISCELLANOUS REPORT QUERY: I would describe her as malnutrition. MMODL / IJN: [id number] /
--- NOTE | 2018-01-26 18:01 | MISC ---
MISCELLANOUS REPORT QUERY: I would agree with a stage II decubitus in the coccygeal region. MMODL / IJN: [id number] /
--- NOTE | 2018-01-30 22:32 | DS ---
DISCHARGE SUMMARY She was admitted on January 20 and January 21. CHIEF COMPLAINT: Mental status changes, lethargy and sepsis. HISTORY OF PRESENT ILLNESS AND PHYSICAL EXAM: Details of this lady's history and physical can be found in the initial workup. LABORATORY STUDIES: While she was in the hospital, she had laboratory studies, details of which can be found in the laboratory section of her chart. COURSE IN HOSPITAL: After admission, she was placed on bedrest and started on intravenous fluids. She received acute intensive care under the direction of cloth tester quality in ICU. She was septic. It was thought likely to be due to some of the necrotic ulcers that appeared on both her feet and lower legs. Despite vigorous supportive and resuscitative care, she on the . FINAL DIAGNOSES: 1. Bacterial septicemia. 2. Septic shock. 3. Necrotic and ischemic vascular ulcers of the lower extremities. 4. Chronic obstructive pulmonary disease. OPERATIONS: None. CONSULTATIONS: Intensive Medicine and Infectious Disease. She is not improved. She . MMODL / IJN: [id number] /
== END 2018-01-21 14:54 | disposition expired | DRG 871 ==
LOC: EC 10:01 → 6SEL 14:16 → 6ICU 22:31 → 6SEL 22:52 → 6ICU 22:55 → 4MS4W 01-21 12:41
PROVIDERS: ADMIT Family Medicine; ATTEND Family Medicine
PROC: 5A09357 Assistance with Respiratory Ventilation, Less than 24 Consecutive Hours, Continuous Positive Airway Pressure (ICD-10-PCS; principal; 2018-01-20)
DX: A41.9 Sepsis, unspecified organism (principal); J18.9 Pneumonia, unspecified organism; J96.91 Respiratory failure, unspecified with hypoxia; R40.20 Unspecified coma; R65.21 Severe sepsis with septic shock; Z68.1 Body mass index [BMI] 19.9 or less, adult; E46 Unspecified protein-calorie malnutrition; E87.2 Acidosis; I48.1 Persistent atrial fibrillation; J44.0 Chronic obstructive pulmonary disease with (acute) lower respiratory infection; L03.115 Cellulitis of right lower limb; N17.9 Acute kidney failure, unspecified; N39.0 Urinary tract infection, site not specified; L89.152 Pressure ulcer of sacral region, stage 2; Z51.5 Encounter for palliative care; Z66 Do not resuscitate; D64.9 Anemia, unspecified; E83.51 Hypocalcemia; E87.5 Hyperkalemia; E87.8 Other disorders of electrolyte and fluid balance, not elsewhere classified; F17.200 Nicotine dependence, unspecified, uncomplicated; I11.0 Hypertensive heart disease with heart failure; I50.9 Heart failure, unspecified; M41.9 Scoliosis, unspecified; Z82.49 Family history of ischemic heart disease and other diseases of the circulatory system; Z91.19 Patient's noncompliance with other medical treatment and regimen; I70.248 Atherosclerosis of native arteries of left leg with ulceration of other part of lower leg; I70.245 Atherosclerosis of native arteries of left leg with ulceration of other part of foot; I70.238 Atherosclerosis of native arteries of right leg with ulceration of other part of lower leg; I70.235 Atherosclerosis of native arteries of right leg with ulceration of other part of foot; Z82.3 Family history of stroke
CPT/HCPCS: 36415; 36600; 71045; 71046; 80048; 80053; 81001; 82550; 82553; 82805; 83605; 83735; 84100; 84132; 84484; 85025; 85610; 85730; 87040; 87077; 87086; 87186; 94640; 94660; 96361; 96365; 96367; 99291